=== PATIENT | male | born 2000 | race Caucasian/White ===

== ENCOUNTER 2022-04-01 16:59 | Emergency (ER) | payer OTHER, SELFPAY ==
[2022-04-01 17:06] VITALS: BMI 30.4
[2022-04-01 17:15] VITALS: BP 134/82; PULSE 79; RESP 18; O2SAT 96
[2022-04-01 17:45] LABS: Alanine Aminotransferase 268 IU/L (<50); Alkaline Phosphatase 95 U/L (38-126); Aspartate Aminotransferase 89 IU/L (17-59); BUN Creatinine Ratio 10.5 (6-22); Bilirubin Total 0.5 mg/dL (0.2-1.3); Blood Urea Nitrogen 10 mg/dL (9-20); Carbon Dioxide 24 mmol/L (22-32); Chloride 103 mmol/L (98-107); Estimated Glomerular Filt Rate > 60 mL/min (>60); Glucose 101 mg/dL (70-100); Potassium 4.2 mmol/L (3.4-5.1); Sodium 141 mmol/L (137-145); Total Protein 7.9 g/dL (6.3-8.2)
[2022-04-01 17:46] LABS: Albumin 4.4 g/dL (3.5-5.0); Albumin Globulin Ratio 1.3 (1.0-2.8); Ethanol (ETOH) < 10 mg/dL; Globulin 3.5 g/dL (1.7-4.1); HEMOLYSIS 24 (0-50)
[2022-04-01 17:47] LABS: Add Manual Diff / Slide Review NO; Basophils Absolute Auto 100 /uL (0-100); Basophils Percent Auto 0.9 % (0-2); Eosinophils Absolute Auto 400 /uL (0-450); Eosinophils Percent Auto 6.1 % (2-4); Hematocrit 42.3 % (41-53); Hemoglobin 14.8 g/dL (13.5-17.5); Lymphocytes Absolute Auto 2400 /uL (1100-4500); Lymphocytes Percent Auto 39.8 % (25-40); Mean Corpuscular HGB Conc 34.9 % (30-36); Mean Corpuscular Hemoglobin 31.2 PG (26-34); Mean Corpuscular Volume 89.4 fL (80-100); Monocytes Absolute Auto 500 /uL (0-900); Neutrophils Absolute Auto 2700 /uL (1500-7000); Neutrophils Percent Auto 45.2 % (50-75); Platelet Count 263 X10^3/uL (150-400); Red Blood Cell Count 4.73 X10^6/uL (4.5-5.9); Red Cell Distribution Width 12.9 % (11.6-14.8); White Blood Cell Count 5.9 X10^3/uL (4.5-11.0)
[2022-04-01 18:37] LABS: COVID19 -Nasal RAPID Negative (Negative)
[2022-04-01 18:44] LABS: Ur Creatinine Normal (Normal); Ur Specific Gravity Normal (Normal); Urine Tetrahydrocannabinol Negative (Negative); Urine pH Normal (Normal)
[2022-04-01 18:45] LABS: UR Morphine/Opiate cutoff 300 Negative (Negative); Urine Amphetamines Negative (Negative); Urine Barbiturates Negative (Negative); Urine Benzodiazepines Negative (Negative); Urine Cocaine Negative (Negative); Urine MDMA Negative (Negative); Urine Methadone Negative (Negative); Urine Methamphetamines Negative (Negative); Urine Oxycodone Negative (Negative); Urine Phencyclidine Negative (Negative); Urine Tricyclic Antidepressant Negative (Negative)
--- NOTE | 2022-04-01 18:45 | ED_ITS ---
HPI - Psych <JESIKA Cancino - Last Filed: 04/02/22 20:37> General Chief Complaint: Psychiatric Symptoms Stated Complaint: suicide Time Seen by Provider: 04/01/22 17:30 Source: patient Mode of arrival: Family Vehicle History of Present Illness HPI Narrative: This is a 21-year-old male who [place] emergency [place] expressed feelings of depression which have been worsening over the last 2 years with significant worsening over the last week and states that he has suicidal ideation without a plan in general. He states that today when he was driving he thought about driving off of the road but did not do it. He denies any ingestion of anything to harm himself, states he used to be a heavy drinker in 2019 when he lost his grandpa and is caring a lot of grief from this. He states he has not been drinking or vaping, denies any ingestion. He states that he is on Wellbutrin and clonidine for his anxiety and depression. He denies any homicidal ideation, he came in by ambulance today with concern for his suicidality. Patient , has a supportive spouse, states that he has had stress with work his work life balance and weight gain over the last 2 years of 90 lb. Related Data Home Medications Medication Instructions Recorded Confirmed bupropion HCl 150 mg 24 hr tablet, 150 mg PO QAM 04/01/22 04/01/22 extended release (Wellbutrin XL) clonidine HCl 0.2 mg tablet 0.2 mg PO PRN PRN Anxiety 04/01/22 04/01/22 Allergies Allergy/AdvReac Type Severity Reaction Status Date / Time No Known Drug Allergies Allergy Verified 04/01/22 17:17 Review of Systems <JESIKA Cancino - Last Filed: 04/02/22 20:37> Review of Systems Narrative: Review of systems is negative for acute abnormalities unless otherwise noted in HPI Patient History <JESIKA Cancino - Last Filed: 04/02/22 20:37> Social History Smoking Status: Former smoker Smoking Status: Former smoker tobacco type: vaping alcohol intake frequency: 0-2 drinks per day Substance Use Type: does not use Exam <JESIKA Cancino - Last Filed: 04/02/22 20:37> Narrative Exam Narrative: Reviewed vitals signs and nursing notes. General: cooperative, comfortable, in no acute distress, well groomed HEENT: symmetrical facial expressions, moist mucous membranes Cardiovascular: regular rate and rhythm, no peripheral edema, warm extremities Respiratory: normal effort, able to speak in complete sentences, without wheezing, stridor, or abnormal breath sounds. No retractions or tachypnea. GI: abdomen soft, nontender to palpation, nondistended, without masses, rebound tenderness or exquisite tenderness with exam. MSK: moves all extremities, neurovascularly intact, no weakness, normal tone Skin: brisk capillary refill, without pallor or erythema Neuro: normal speech and cognition, A&O x3, ambulatory, clear speech Psych: mental status is grossly normal, congruent mood, normal affect, pleasant and cooperative Initial Vital Signs Initial Vital Signs: Vital Signs Pulse Rate 79 04/01/22 17:15 Respiratory Rate 18 04/01/22 17:15 Blood Pressure 134/82 04/01/22 17:15 Pulse Oximetry 96 04/01/22 17:15 Oxygen Delivery Method 04/01/22 17:15 <Tatiana Martinez DO - Last Filed: 04/03/22 06:57> Initial Vital Signs Initial Vital Signs: Vital Signs Pulse Rate 79 04/01/22 17:15 Respiratory Rate 18 04/01/22 17:15 Blood Pressure 134/82 04/01/22 17:15 Pulse Oximetry 96 04/01/22 17:15 Oxygen Delivery Method 04/01/22 17:15 <Ellen Argueta DO - Last Filed: 04/02/22 18:35> Initial Vital Signs Initial Vital Signs: Vital Signs Pulse Rate 79 04/01/22 17:15 Respiratory Rate 18 04/01/22 17:15 Blood Pressure 134/82 04/01/22 17:15 Pulse Oximetry 96 04/01/22 17:15 Oxygen Delivery Method 04/01/22 17:15 Course <JESIKA Cancino - Last Filed: 04/02/22 20:37> Orders Ordered: ED Orders 04/02/22 10:41 Acetaminophen Stat Salicylate Stat Thyroid Stimulating Hormone Stat Vital Signs Vital signs: Vital Signs - 8 hr 04/02/22 11:55 Temperature 98.6 F Pulse Rate 79 Respiratory Rate 16 Blood Pressure 139/95 H Pulse Oximetry 97 Oxygen Delivery Method Room Air <Tatiana Martinez DO - Last Filed: 04/03/22 06:57> Orders Ordered: ED Orders 04/02/22 10:41 Acetaminophen Stat Salicylate Stat Thyroid Stimulating Hormone Stat Vital Signs Vital signs: Vital Signs - 8 hr 04/02/22 11:55 Temperature 98.6 F Pulse Rate 79 Respiratory Rate 16 Blood Pressure 139/95 H Pulse Oximetry 97 Oxygen Delivery Method Room Air <Ellen Argueta DO - Last Filed: 04/02/22 18:35> Orders Ordered: ED Orders 04/02/22 10:41 Acetaminophen Stat Salicylate Stat Thyroid Stimulating Hormone Stat Vital Signs Vital signs: Vital Signs - 8 hr 04/02/22 11:55 Temperature 98.6 F Pulse Rate 79 Respiratory Rate 16 Blood Pressure 139/95 H Pulse Oximetry 97 Oxygen Delivery Method Room Air MDM - Psych <PHANI CancinoP - Last Filed: 04/02/22 20:37> Lab Data Result diagrams: 04/01/22 17:15 04/01/22 17:15 Labs: Lab Results 04/01/22 04/01/22 04/01/22 Range/Units 16:14 17:15 17:15 WBC 5.9 (4.5-11.0) X10^3/uL RBC 4.73 (4.5-5.9) X10^6/uL Hgb 14.8 (13.5-17.5) g/dL Hct 42.3 (41-53) % MCV 89.4 (80-100) fL MCH 31.2 (26-34) PG MCHC 34.9 (30-36) % RDW 12.9 (11.6-14.8) % Plt Count 263 (150-400) X10^3/uL Neut % (Auto) 45.2 L (50-75) % Lymph % (Auto) 39.8 (25-40) % [place] % (Auto) 8.0 (3-14) % Eos % (Auto) 6.1 H (2-4) % Baso % (Auto) 0.9 (0-2) % Neut # (Auto) 2700 (3042-8285) /uL Lymph # (Auto) 2400 (1670-3325) /uL [place] # (Auto) 500 (0-900) /uL Eos # (Auto) 400 (0-450) /uL Baso # (Auto) 100 (0-100) /uL Sodium 141 (137-145) mmol/L Potassium 4.2 (3.4-5.1) mmol/L Chloride 103 (98-107) mmol/L Carbon Dioxide 24 (22-32) mmol/L BUN 10 (9-20) mg/dL Creatinine 0.95 (0.66-1.25) mg/dL Estimated GFR > 60 (>60) mL/min BUN/Creatinine Ratio 10.5 (6-22) Glucose 101 H (70-100) mg/dL Calcium 9.0 (8.4-10.2) mg/dL Total Bilirubin 0.5 (0.2-1.3) mg/dL AST 89 H (17-59) IU/L ALT 268 H (<50) IU/L Alkaline Phosphatase 95 (38-126) U/L Total Protein 7.9 (6.3-8.2) g/dL Albumin 4.4 (3.5-5.0) g/dL Globulin 3.5 (1.7-4.1) g/dL Albumin/Globulin Ratio 1.3 (1.0-2.8) TSH (0.47-4.68) uIU/mL Ur Bilirubin Confirm (Negative) Urine RBC (0-5/HPF) Urine WBC (0-5/HPF) Ur Squamous Epith Cells (0-5/HPF) Amorphous Sediment Urine Bacteria (None) Urine Mucus (Negative) Ur Culture Indicated? Salicylates (<20) mg/dL U Opiates 300ng/mL cut (Negative) Ur Oxycodone Screen (Negative) Urine Methadone Screen (Negative) Acetaminophen (10-30) ug/mL Ur Barbiturates Screen (Negative) U Tricyclic Antidepress (Negative) Ur Phencyclidine Scrn (Negative) Ur Amphetamines Screen (Negative) U Methamphetamines Scrn (Negative) Ur MDMA Scrn (Ecstasy) (Negative) U Benzodiazepines Scrn (Negative) Urine Cocaine Screen (Negative) U Marijuana (THC) Screen (Negative) Ethyl Alcohol < 10 ( - 10) mg/dL SARS-CoV-2 (PCR) Negative (Negative) 04/01/22 04/01/22 04/02/22 Range/Units 18:09 18:09 10:41 WBC (4.5-11.0) X10^3/uL RBC (4.5-5.9) X10^6/uL Hgb (13.5-17.5) g/dL Hct (41-53) % MCV (80-100) fL MCH (26-34) PG MCHC (30-36) % RDW (11.6-14.8) % Plt Count (150-400) X10^3/uL Neut % (Auto) (50-75) % Lymph % (Auto) (25-40) % [place] % (Auto) (3-14) % Eos % (Auto) (2-4) % Baso % (Auto) (0-2) % Neut # (Auto) (7834-5851) /uL Lymph # (Auto) (0282-1455) /uL [place] # (Auto) (0-900) /uL Eos # (Auto) (0-450) /uL Baso # (Auto) (0-100) /uL Sodium (137-145) mmol/L Potassium (3.4-5.1) mmol/L Chloride (98-107) mmol/L Carbon Dioxide (22-32) mmol/L BUN (9-20) mg/dL Creatinine (0.66-1.25) mg/dL Estimated GFR (>60) mL/min BUN/Creatinine Ratio (6-22) Glucose (70-100) mg/dL Calcium (8.4-10.2) mg/dL Total Bilirubin (0.2-1.3) mg/dL AST (17-59) IU/L ALT (<50) IU/L Alkaline Phosphatase (38-126) U/L Total Protein (6.3-8.2) g/dL Albumin (3.5-5.0) g/dL Globulin (1.7-4.1) g/dL Albumin/Globulin Ratio (1.0-2.8) TSH 3.03 (0.47-4.68) uIU/mL Ur Bilirubin Confirm Negative (Negative) Urine RBC 0-1/hpf (0-5/HPF) Urine WBC 5-10/hpf H (0-5/HPF) Ur Squamous Epith Cells 1-5 /hpf (0-5/HPF) Amorphous Sediment 1+ Urine Bacteria None seen (None) Urine Mucus 4+ H (Negative) Ur Culture Indicated? Specimen cultured Salicylates (<20) mg/dL U Opiates 300ng/mL cut Negative (Negative) Ur Oxycodone Screen Negative (Negative) Urine Methadone Screen Negative (Negative) Acetaminophen (10-30) ug/mL Ur Barbiturates Screen Negative (Negative) U Tricyclic Antidepress Negative (Negative) Ur Phencyclidine Scrn Negative (Negative) Ur Amphetamines Screen Negative (Negative) U Methamphetamines Scrn Negative (Negative) Ur MDMA Scrn (Ecstasy) Negative (Negative) U Benzodiazepines Scrn Negative (Negative) Urine Cocaine Screen Negative (Negative) U Marijuana (THC) Screen Negative (Negative) Ethyl Alcohol ( - 10) mg/dL SARS-CoV-2 (PCR) (Negative) 04/02/22 Range/Units 10:41 WBC (4.5-11.0) X10^3/uL RBC (4.5-5.9) X10^6/uL Hgb (13.5-17.5) g/dL Hct (41-53) % MCV (80-100) fL MCH (26-34) PG MCHC (30-36) % RDW (11.6-14.8) % Plt Count (150-400) X10^3/uL Neut % (Auto) (50-75) % Lymph % (Auto) (25-40) % [place] % (Auto) (3-14) % Eos % (Auto) (2-4) % Baso % (Auto) (0-2) % Neut # (Auto) (2668-3993) /uL Lymph # (Auto) (0492-5410) /uL [place] # (Auto) (0-900) /uL Eos # (Auto) (0-450) /uL Baso # (Auto) (0-100) /uL Sodium (137-145) mmol/L Potassium (3.4-5.1) mmol/L Chloride (98-107) mmol/L Carbon Dioxide (22-32) mmol/L BUN (9-20) mg/dL Creatinine (0.66-1.25) mg/dL Estimated GFR (>60) mL/min BUN/Creatinine Ratio (6-22) Glucose (70-100) mg/dL Calcium (8.4-10.2) mg/dL Total Bilirubin (0.2-1.3) mg/dL AST (17-59) IU/L ALT (<50) IU/L Alkaline Phosphatase (38-126) U/L Total Protein (6.3-8.2) g/dL Albumin (3.5-5.0) g/dL Globulin (1.7-4.1) g/dL Albumin/Globulin Ratio (1.0-2.8) TSH (0.47-4.68) uIU/mL Ur Bilirubin Confirm (Negative) Urine RBC (0-5/HPF) Urine WBC (0-5/HPF) Ur Squamous Epith Cells (0-5/HPF) Amorphous Sediment Urine Bacteria (None) Urine Mucus (Negative) Ur Culture Indicated? Salicylates < 1.0 (<20) mg/dL U Opiates 300ng/mL cut (Negative) Ur Oxycodone Screen (Negative) Urine Methadone Screen (Negative) Acetaminophen < 10 (10-30) ug/mL Ur Barbiturates Screen (Negative) U Tricyclic Antidepress (Negative) Ur Phencyclidine Scrn (Negative) Ur Amphetamines Screen (Negative) U Methamphetamines Scrn (Negative) Ur MDMA Scrn (Ecstasy) (Negative) U Benzodiazepines Scrn (Negative) Urine Cocaine Screen (Negative) U Marijuana (THC) Screen (Negative) Ethyl Alcohol ( - 10) mg/dL SARS-CoV-2 (PCR) (Negative) Urine Dip Bedside Urine Glucose Negative Bedside Urine Bilirubin + 1 Bedside Urine Ketone - Negative Urine Specific [place] 1.03 Bedside Urine Occult Blood - Negative Bedside Urine pH 6.0 Bedside Urine Protein +/- 15 Bedside Urine Urobilinogen - Negative Bedside Urine Nitrite - Negative Bedside Urine Leukocytes - Negative Esterase MDM Narrative Medical decision making narrative: This is a 21-year-old male who presents to the emergency department by ambulance after he was at his [place] behavioral health therapy appointment in which he endor sed suicidal ideation and thoughts of ending his life over the last week. Patient is currently on Wellbutrin 150 mg q.a.m. for depression and clonidine 0.2 mg as needed for anxiety. He states he has been on this for a while. He states his depression started worsening in 2019 with his grandfather and then he gained 90 lb which led to worsening of his depression, he states that he has not had a plan but today thought about driving his car off the road. He has been medically cleared without any abnormal findings on his lab work today and records have been sent to [facility] and pending response with a bed for voluntary admission. <Tatianatunde Martinez, DO - Last Filed: 04/03/22 06:57> Lab Data Labs: Lab Results 04/01/22 04/01/22 04/01/22 Range/Units 16:14 17:15 17:15 WBC 5.9 (4.5-11.0) X10^3/uL RBC 4.73 (4.5-5.9) X10^6/uL Hgb 14.8 (13.5-17.5) g/dL Hct 42.3 (41-53) % MCV 89.4 (80-100) fL MCH 31.2 (26-34) PG MCHC 34.9 (30-36) % RDW 12.9 (11.6-14.8) % Plt Count 263 (150-400) X10^3/uL Neut % (Auto) 45.2 L (50-75) % Lymph % (Auto) 39.8 (25-40) % [place] % (Auto) 8.0 (3-14) % Eos % (Auto) 6.1 H (2-4) % Baso % (Auto) 0.9 (0-2) % Neut # (Auto) 2700 (9891-8277) /uL Lymph # (Auto) 2400 (0388-6222) /uL [place] # (Auto) 500 (0-900) /uL Eos # (Auto) 400 (0-450) /uL Baso # (Auto) 100 (0-100) /uL Sodium 141 (137-145) mmol/L Potassium 4.2 (3.4-5.1) mmol/L Chloride 103 (98-107) mmol/L Carbon Dioxide 24 (22-32) mmol/L BUN 10 (9-20) mg/dL Creatinine 0.95 (0.66-1.25) mg/dL Estimated GFR > 60 (>60) mL/min BUN/Creatinine Ratio 10.5 (6-22) Glucose 101 H (70-100) mg/dL Calcium 9.0 (8.4-10.2) mg/dL Total Bilirubin 0.5 (0.2-1.3) mg/dL AST 89 H (17-59) IU/L ALT 268 H (<50) IU/L Alkaline Phosphatase 95 (38-126) U/L Total Protein 7.9 (6.3-8.2) g/dL Albumin 4.4 (3.5-5.0) g/dL Globulin 3.5 (1.7-4.1) g/dL Albumin/Globulin Ratio 1.3 (1.0-2.8) TSH (0.47-4.68) uIU/mL Ur Bilirubin Confirm (Negative) Urine RBC (0-5/HPF) Urine WBC (0-5/HPF) Ur Squamous Epith Cells (0-5/HPF) Amorphous Sediment Urine Bacteria (None) Urine Mucus (Negative) Ur Culture Indicated? Salicylates (<20) mg/dL U Opiates 300ng/mL cut (Negative) Ur Oxycodone Screen (Negative) Urine Methadone Screen (Negative) Acetaminophen (10-30) ug/mL Ur Barbiturates Screen (Negative) U Tricyclic Antidepress (Negative) Ur Phencyclidine Scrn (Negative) Ur Amphetamines Screen (Negative) U Methamphetamines Scrn (Negative) Ur MDMA Scrn (Ecstasy) (Negative) U Benzodiazepines Scrn (Negative) Urine Cocaine Screen (Negative) U Marijuana (THC) Screen (Negative) Ethyl Alcohol < 10 ( - 10) mg/dL SARS-CoV-2 (PCR) Negative (Negative) 04/01/22 04/01/22 04/02/22 Range/Units 18:09 18:09 10:41 WBC (4.5-11.0) X10^3/uL RBC (4.5-5.9) X10^6/uL Hgb (13.5-17.5) g/dL Hct (41-53) % MCV (80-100) fL MCH (26-34) PG MCHC (30-36) % RDW (11.6-14.8) % Plt Count (150-400) X10^3/uL Neut % (Auto) (50-75) % Lymph % (Auto) (25-40) % [place] % (Auto) (3-14) % Eos % (Auto) (2-4) % Baso % (Auto) (0-2) % Neut # (Auto) (0815-4349) /uL Lymph # (Auto) (9771-2438) /uL [place] # (Auto) (0-900) /uL Eos # (Auto) (0-450) /uL Baso # (Auto) (0-100) /uL Sodium (137-145) mmol/L Potassium (3.4-5.1) mmol/L Chloride (98-107) mmol/L Carbon Dioxide (22-32) mmol/L BUN (9-20) mg/dL Creatinine (0.66-1.25) mg/dL Estimated GFR (>60) mL/min BUN/Creatinine Ratio (6-22) Glucose (70-100) mg/dL Calcium (8.4-10.2) mg/dL Total Bilirubin (0.2-1.3) mg/dL AST (17-59) IU/L ALT (<50) IU/L Alkaline Phosphatase (38-126) U/L Total Protein (6.3-8.2) g/dL Albumin (3.5-5.0) g/dL Globulin (1.7-4.1) g/dL Albumin/Globulin Ratio (1.0-2.8) TSH 3.03 (0.47-4.68) uIU/mL Ur Bilirubin Confirm Negative (Negative) Urine RBC 0-1/hpf (0-5/HPF) Urine WBC 5-10/hpf H (0-5/HPF) Ur Squamous Epith Cells 1-5 /hpf (0-5/HPF) Amorphous Sediment 1+ Urine Bacteria None seen (None) Urine Mucus 4+ H (Negative) Ur Culture Indicated? Specimen cultured Salicylates (<20) mg/dL U Opiates 300ng/mL cut Negative (Negative) Ur Oxycodone Screen Negative (Negative) Urine Methadone Screen Negative (Negative) Acetaminophen (10-30) ug/mL Ur Barbiturates Screen Negative (Negative) U Tricyclic Antidepress Negative (Negative) Ur Phencyclidine Scrn Negative (Negative) Ur Amphetamines Screen Negative (Negative) U Methamphetamines Scrn Negative (Negative) Ur MDMA Scrn (Ecstasy) Negative (Negative) U Benzodiazepines Scrn Negative (Negative) Urine Cocaine Screen Negative (Negative) U Marijuana (THC) Screen Negative (Negative) Ethyl Alcohol ( - 10) mg/dL SARS-CoV-2 (PCR) (Negative) 04/02/22 Range/Units 10:41 WBC (4.5-11.0) X10^3/uL RBC (4.5-5.9) X10^6/uL Hgb (13.5-17.5) g/dL Hct (41-53) % MCV (80-100) fL MCH (26-34) PG MCHC (30-36) % RDW (11.6-14.8) % Plt Count (150-400) X10^3/uL Neut % (Auto) (50-75) % Lymph % (Auto) (25-40) % [place] % (Auto) (3-14) % Eos % (Auto) (2-4) % Baso % (Auto) (0-2) % Neut # (Auto) (2405-8351) /uL Lymph # (Auto) (1083-1980) /uL [place] # (Auto) (0-900) /uL Eos # (Auto) (0-450) /uL Baso # (Auto) (0-100) /uL Sodium (137-145) mmol/L Potassium (3.4-5.1) mmol/L Chloride (98-107) mmol/L Carbon Dioxide (22-32) mmol/L BUN (9-20) mg/dL Creatinine (0.66-1.25) mg/dL Estimated GFR (>60) mL/min BUN/Creatinine Ratio (6-22) Glucose (70-100) mg/dL Calcium (8.4-10.2) mg/dL Total Bilirubin (0.2-1.3) mg/dL AST (17-59) IU/L ALT (<50) IU/L Alkaline Phosphatase (38-126) U/L Total Protein (6.3-8.2) g/dL Albumin (3.5-5.0) g/dL Globulin (1.7-4.1) g/dL Albumin/Globulin Ratio (1.0-2.8) TSH (0.47-4.68) uIU/mL Ur Bilirubin Confirm (Negative) Urine RBC (0-5/HPF) Urine WBC (0-5/HPF) Ur Squamous Epith Cells (0-5/HPF) Amorphous Sediment Urine Bacteria (None) Urine Mucus (Negative) Ur Culture Indicated? Salicylates < 1.0 (<20) mg/dL U Opiates 300ng/mL cut (Negative) Ur Oxycodone Screen (Negative) Urine Methadone Screen (Negative) Acetaminophen < 10 (10-30) ug/mL Ur Barbiturates Screen (Negative) U Tricyclic Antidepress (Negative) Ur Phencyclidine Scrn (Negative) Ur Amphetamines Screen (Negative) U Methamphetamines Scrn (Negative) Ur MDMA Scrn (Ecstasy) (Negative) U Benzodiazepines Scrn (Negative) Urine Cocaine Screen (Negative) U Marijuana (THC) Screen (Negative) Ethyl Alcohol ( - 10) mg/dL SARS-CoV-2 (PCR) (Negative) Urine Dip Bedside Urine Glucose Negative Bedside Urine Bilirubin + 1 Bedside Urine Ketone - Negative Urine Specific [place] 1.03 Bedside Urine Occult Blood - Negative Bedside Urine pH 6.0 Bedside Urine Protein +/- 15 Bedside Urine Urobilinogen - Negative Bedside Urine Nitrite - Negative Bedside Urine Leukocytes - Negative Esterase MDM Narrative Medical decision making narrative: This is a 21-year-old male who presents to the emergency department by ambulance after he was at his [place] behavioral health therapy appointment in which he endorsed suicidal ideation and thoughts of ending his life over the last week. Patient is currently on Wellbutrin 150 mg q.a.m. for depression and clonidine 0.2 mg as needed for anxiety. He states he has been on this for a while. He states his depression started worsening in 2019 with his grandfather and then he gained 90 lb which led to worsening of his depression, he states that he has not had a plan but today thought about driving his car off the road. He has been medically cleared without any abnormal findings on his lab work today and records have been sent to [facility] and pending response with a bed for voluntary admission. Patient signed out to myself by [employer]. Patient was seen independently laura vital by myself. I spoke with . Sandra @ [phone] who saw patient today and has had 3 prior visits. She feels strongly patient needs inpatient at [facility]. She [place] feel that [place]. Although patient has requested do so although he is asking to return home and follow-up during daytime hours to still go to med again. If there are any issues she asked that we reach out to his command number and they can reinforce this. Discussed with patient that his physician feels he needs to stay here until placement is found. He is agreeable to this and has been very pleasant and appropriate in the department. Patient medically cleared. Patient signed out to Dr. Argueta while awaiting placement. [facility] reportedly reviewing after 5:00 a.m. today, we have confirmed patient's chart arrived. [facility]-medically clear I spoke with patient myself. He actually is quite happy this morning. He states that he is no longer suicidal. He feels much better and safer going home his who is a good support for him. He says he did not mean to say that he was suicidal yesterday. Currently waiting for social work for evaluation however he has been accepted at [facility] again. I did talk with Lt. Sandra @ [phone], again this morning. She states it he is crisis mode. She has made arrangements for him to be off work through the weekend and he has close follow-up with her. His appointments for actually scheduled to increase to twice a week none starting on Wednesday versus the once a week. She also make adjustments medications as needed. At this time she says med again and transport can be canceled and he can be discharged home. Patient and feel much better with this plan <Ellen Argueta, DO - Last Filed: 04/02/22 18:35> Lab Data Labs: Lab Results 04/01/22 04/01/22 04/01/22 Range/Units 16:14 17:15 17:15 WBC 5.9 (4.5-11.0) X10^3/uL RBC 4.73 (4.5-5.9) X10^6/uL Hgb 14.8 (13.5-17.5) g/dL Hct 42.3 (41-53) % MCV 89.4 (80-100) fL MCH 31.2 (26-34) PG MCHC 34.9 (30-36) % RDW 12.9 (11.6-14.8) % Plt Count 263 (150-400) X10^3/uL Neut % (Auto) 45.2 L (50-75) % Lymph % (Auto) 39.8 (25-40) % [place] % (Auto) 8.0 (3-14) % Eos % (Auto) 6.1 H (2-4) % Baso % (Auto) 0.9 (0-2) % Neut # (Auto) 2700 (5036-0865) /uL Lymph # (Auto) 2400 (6136-6858) /uL [place] # (Auto) 500 (0-900) /uL Eos # (Auto) 400 (0-450) /uL Baso # (Auto) 100 (0-100) /uL Sodium 141 (137-145) mmol/L Potassium 4.2 (3.4-5.1) mmol/L Chloride 103 (98-107) mmol/L Carbon Dioxide 24 (22-32) mmol/L BUN 10 (9-20) mg/dL Creatinine 0.95 (0.66-1.25) mg/dL Estimated GFR > 60 (>60) mL/min BUN/Creatinine Ratio 10.5 (6-22) Glucose 101 H (70-100) mg/dL Calcium 9.0 (8.4-10.2) mg/dL Total Bilirubin 0.5 (0.2-1.3) mg/dL AST 89 H (17-59) IU/L ALT 268 H (<50) IU/L Alkaline Phosphatase 95 (38-126) U/L Total Protein 7.9 (6.3-8.2) g/dL Albumin 4.4 (3.5-5.0) g/dL Globulin 3.5 (1.7-4.1) g/dL Albumin/Globulin Ratio 1.3 (1.0-2.8) TSH (0.47-4.68) uIU/mL Ur Bilirubin Confirm (Negative) Urine RBC (0-5/HPF) Urine WBC (0-5/HPF) Ur Squamous Epith Cells (0-5/HPF) Amorphous Sediment Urine Bacteria (None) Urine Mucus (Negative) Ur Culture Indicated? Salicylates (<20) mg/dL U Opiates 300ng/mL cut (Negative) Ur Oxycodone Screen (Negative) Urine Methadone Screen (Negative) Acetaminophen (10-30) ug/mL Ur Barbiturates Screen (Negative) U Tricyclic Antidepress (Negative) Ur Phencyclidine Scrn (Negative) Ur Amphetamines Screen (Negative) U Methamphetamines Scrn (Negative) Ur MDMA Scrn (Ecstasy) (Negative) U Benzodiazepines Scrn (Negative) Urine Cocaine Screen (Negative) U Marijuana (THC) Screen (Negative) Ethyl Alcohol < 10 ( - 10) mg/dL SARS-CoV-2 (PCR) Negative (Negative) 04/01/22 04/01/22 04/02/22 Range/Units 18:09 18:09 10:41 WBC (4.5-11.0) X10^3/uL RBC (4.5-5.9) X10^6/uL Hgb (13.5-17.5) g/dL Hct (41-53) % MCV (80-100) fL MCH (26-34) PG MCHC (30-36) % RDW (11.6-14.8) % Plt Count (150-400) X10^3/uL Neut % (Auto) (50-75) % Lymph % (Auto) (25-40) % [place] % (Auto) (3-14) % Eos % (Auto) (2-4) % Baso % (Auto) (0-2) % Neut # (Auto) (6695-2083) /uL Lymph # (Auto) (6538-7033) /uL [place] # (Auto) (0-900) /uL Eos # (Auto) (0-450) /uL Baso # (Auto) (0-100) /uL Sodium (137-145) mmol/L Potassium (3.4-5.1) mmol/L Chloride (98-107) mmol/L Carbon Dioxide (22-32) mmol/L BUN (9-20) mg/dL Creatinine (0.66-1.25) mg/dL Estimated GFR (>60) mL/min BUN/Creatinine Ratio (6-22) Glucose (70-100) mg/dL Calcium (8.4-10.2) mg/dL Total Bilirubin (0.2-1.3) mg/dL AST (17-59) IU/L ALT (<50) IU/L Alkaline Phosphatase (38-126) U/L Total Protein (6.3-8.2) g/dL Albumin (3.5-5.0) g/dL Globulin (1.7-4.1) g/dL Albumin/Globulin Ratio (1.0-2.8) TSH 3.03 (0.47-4.68) uIU/mL Ur Bilirubin Confirm Negative (Negative) Urine RBC 0-1/hpf (0-5/HPF) Urine WBC 5-10/hpf H (0-5/HPF) Ur Squamous Epith Cells 1-5 /hpf (0-5/HPF) Amorphous Sediment 1+ Urine Bacteria None seen (None) Urine Mucus 4+ H (Negative) Ur Culture Indicated? Specimen cultured Salicylates (<20) mg/dL U Opiates 300ng/mL cut Negative (Negative) Ur Oxycodone Screen Negative (Negative) Urine Methadone Screen Negative (Negative) Acetaminophen (10-30) ug/mL Ur Barbiturates Screen Negative (Negative) U Tricyclic Antidepress Negative (Negative) Ur Phencyclidine Scrn Negative (Negative) Ur Amphetamines Screen Negative (Negative) U Methamphetamines Scrn Negative (Negative) Ur MDMA Scrn (Ecstasy) Negative (Negative) U Benzodiazepines Scrn Negative (Negative) Urine Cocaine Screen Negative (Negative) U Marijuana (THC) Screen Negative (Negative) Ethyl Alcohol ( - 10) mg/dL SARS-CoV-2 (PCR) (Negative) 04/02/22 Range/Units 10:41 WBC (4.5-11.0) X10^3/uL RBC (4.5-5.9) X10^6/uL Hgb (13.5-17.5) g/dL Hct (41-53) % MCV (80-100) fL MCH (26-34) PG MCHC (30-36) % RDW (11.6-14.8) % Plt Count (150-400) X10^3/uL Neut % (Auto) (50-75) % Lymph % (Auto) (25-40) % [place] % (Auto) (3-14) % Eos % (Auto) (2-4) % Baso % (Auto) (0-2) % Neut # (Auto) (0418-5153) /uL Lymph # (Auto) (8537-1004) /uL [place] # (Auto) (0-900) /uL Eos # (Auto) (0-450) /uL Baso # (Auto) (0-100) /uL Sodium (137-145) mmol/L Potassium (3.4-5.1) mmol/L Chloride (98-107) mmol/L Carbon Dioxide (22-32) mmol/L BUN (9-20) mg/dL Creatinine (0.66-1.25) mg/dL Estimated GFR (>60) mL/min BUN/Creatinine Ratio (6-22) Glucose (70-100) mg/dL Calcium (8.4-10.2) mg/dL Total Bilirubin (0.2-1.3) mg/dL AST (17-59) IU/L ALT (<50) IU/L Alkaline Phosphatase (38-126) U/L Total Protein (6.3-8.2) g/dL Albumin (3.5-5.0) g/dL Globulin (1.7-4.1) g/dL Albumin/Globulin Ratio (1.0-2.8) TSH (0.47-4.68) uIU/mL Ur Bilirubin Confirm (Negative) Urine RBC (0-5/HPF) Urine WBC (0-5/HPF) Ur Squamous Epith Cells (0-5/HPF) Amorphous Sediment Urine Bacteria (None) Urine Mucus (Negative) Ur Culture Indicated? Salicylates < 1.0 (<20) mg/dL U Opiates 300ng/mL cut (Negative) Ur Oxycodone Screen (Negative) Urine Methadone Screen (Negative) Acetaminophen < 10 (10-30) ug/mL Ur Barbiturates Screen (Negative) U Tricyclic Antidepress (Negative) Ur Phencyclidine Scrn (Negative) Ur Amphetamines Screen (Negative) U Methamphetamines Scrn (Negative) Ur MDMA Scrn (Ecstasy) (Negative) U Benzodiazepines Scrn (Negative) Urine Cocaine Screen (Negative) U Marijuana (THC) Screen (Negative) Ethyl Alcohol ( - 10) mg/dL SARS-CoV-2 (PCR) (Negative) Urine Dip Bedside Urine Glucose Negative Bedside Urine Bilirubin + 1 Bedside Urine Ketone - Negative Urine Specific [place] 1.03 Bedside Urine Occult Blood - Negative Bedside Urine pH 6.0 Bedside Urine Protein +/- 15 Bedside Urine Urobilinogen - Negative Bedside Urine Nitrite - Negative Bedside Urine Leukocytes - Negative Esterase MDM Narrative Medical decision making narrative: This is a 21-year-old male who presents to the emergency department by ambulance after he was at his [place] behavioral health therapy appointment in which he endorsed suicidal ideation and thoughts of ending his life over the last week. Patient is currently on Wellbutrin 150 mg q.a.m. for depression and clonidine 0.2 mg as needed for anxiety. He states he has been on this for a while. He states his depression started worsening in 2019 with his grandfather and then he gained 90 lb which led to worsening of his depression, he states that he has not had a plan but today thought about driving his car off the road. He has been medically cleared without any abnormal findings on his lab work today and records have been sent to [facility] and pending response with a bed for voluntary admission. Patient signed out to myself by [employer]. Patient was seen independently evaluated by myself. I spoke with Lt. Flores @ [phone] who saw patient today and has had 3 prior visits. She feels strongly patient needs inpatient at [facility]. [place] that [place]. Although patient has requested do so although he is asking to return home and follow-up during daytime hours to still go to [facility] again. If there are any issues she asked that we reach out to his command number and they can reinforce this. Discussed with patient that his physician feels he needs to stay here until placement is found. He is agreeable to this and has been very pleasant and appropriate in the department. Patient signed out to Dr. Argueta while awaiting placement. [facility] reportedly reviewing after 5:00 a.m. today, we have confirmed patient's chart arrived. Kendall-medically clear I spoke with patient myself. He actually is quite happy this morning. He states that he is no longer suicidal. He feels much better and safer going home his who is a good support for him. He says he did not mean to say that he was suicidal yesterday. Currently waiting for social work for evaluation however he has been accepted at [facility]. I did talk with Lt. Flores @ [phone], again this morning. She states it he is crisis mode. She has made arrangements for him to be off work through the weekend and he has close follow-up with her. His appointments for actually scheduled to increase to twice a week none starting on Wednesday versus the once a week. She also make adjustments medications as needed. At this time she says med again and trans port can be canceled and he can be discharged home. Patient and feel much better with this plan Discharge Plan Departure Patient Disposition: Home Clinical Impression: Depression with suicidal ideation Instructions: Depression, DI for Suicidal Ideation-Adult Activity Restrictions/Additional Instructions: *You have been diagnosed with depression, suicidal ideation *What to do: If you are feeling suicidal or having suicidal thoughts: Call: Suicide Hotline: 487 Visit: www.[employer] Text: 114066 *Continue to take medications as directed *Follow up with your primary care provider in 2-3 days or call [phone] *Return to ER if you should have both of suicide depression or any new, worsening or concerning symptoms Prescriptions: No Action bupropion HCl [Wellbutrin XL] 150 mg Tablet Extended Release 24 Hr 150 mg PO QAM clonidine HCl 0.2 mg tablet 0.2 mg PO PRN PRN (Reason: Anxiety) Label Comments: TAKE 1 TABLET BY MOUTH TWICE DAILY NEEDED FOR ANXIETY Referrals: [facility] [Provider Group] Visit Report Forms: Patient Portal/API
[2022-04-01 18:54] LABS: Amorphous Sediment Urine 1+; Bacteria Urine None Seen; Ictotest Urine Negative (Negative); RBC Urine 0-1/HPF (0-5/HPF); Squamous Epithelial Cell Urine 1-5 /HPF (0-5/HPF)
[2022-04-01 18:55] LABS: Culture Indicated Urine Specimen Cultured; Mucus Urine 4+ (Negative); WBC Urine 5-10/HPF (0-5/HPF)
[2022-04-01 19:38] VITALS: BP 130/62; PULSE 79; O2SAT 96
[2022-04-01 19:44] VITALS: BP 130/62; PULSE 79; RESP 18; O2SAT 96
[2022-04-02 08:09] VITALS: BP 126/77; PULSE 70; RESP 16; O2SAT 97
--- NOTE | 2022-04-02 09:17 | PC.NURSE ---
Patient asked if social work or the doctor were available to talk with him. I let him know social work arrives at noon but that I would have the doctor come talk with him as soon as possible. Patient was agreeable.
--- NOTE | 2022-04-02 11:25 | PC.NURSE ---
Patient sitting in big recliner in the room, spouse on patients bed. quiet and calm.
[2022-04-02 11:34] LABS: Acetaminophen < 10 ug/mL (10-30); Salicylate < 1.0 mg/dL (<20)
[2022-04-02 11:55] VITALS: BP 139/95; PULSE 79; RESP 16; TEMP 37; O2SAT 97
--- NOTE | 2022-04-02 12:06 | PC.NURSE ---
Patient was accepted to [facility] transport eta is 1330 with aproximate arrival time between [id number] @ [facility]. Dr. Ashwin Laird is the accepting provider. We talked with Tiffany from the [facility]. Tiffany states to give this number to the ambulance crew to call when they are close to arrival for gate entrance.
[2022-04-02 12:07] LABS: Thyroid Stimulating Hormone 3.03 uIU/mL (0.47-4.68)
--- NOTE | 2022-04-02 13:31 | CM.SWNOTE ---
ENGINE LATHE TENDER Assessment Note Patient is 21 y/o male who presents to ED via EMS per recommendation from [employer] therapist. At therapist session yesterday, patient endorsed SI with thought of plan last week. ED provider Dr. Martinez spoke with patient's therapist and recommended inpatient. Last evening patient agreed to inpatient without knowing what it meant. Patient as accepted at [facility] for transport today prior to this ENGINE LATHE TENDER meeting with patient. ENGINE LATHE TENDER meets with patient and he reports that he is not seeking voluntary inpatient and it is his preference to go home with . Patient's endorses that she is off work for the next week and she will supervise patient. Patient endorses he can contract for safety and patient denies current SI and patient denies SI since last week when he thought of driving off of the road. Patient endorses he will have therapy appts every Wednesday and for the next 8 weeks. Patient endorses he recently started new medication and he is hopeful for the future. Patient's states that patient is planning events with friends and going to the gym as well. Patient endorses he is trending upward. Patient endorses he is afraid of inpatient and believes it will be detrimental for him to be away from his , his main support. Patient endorses support from friends, coworkers, his dog, and patient has regular therapy sessions. It is the opinion of this ENGINE LATHE TENDER that patient is safe to d/c to home with , due to his patrick for safety, upcoming therapy appts and agreeing to monitor patient. ENGINE LATHE TENDER reviews this with ED provider who indicates understanding. ED provider calls patient's therapist with [employer] for clarification. It is reported that patient is able to safely d/c to home upon medical clearance after speaking with [place] therapist. Plan: patient to d/c to home with , patient to f/u with upcoming MH therapy appt early next week. GRAHAM Quiros
== END 2022-04-02 13:22 | disposition home or self-care (01) ==
PROVIDERS: Emergency Medicine; Emergency Provider Emergency Medicine
DX: F32.A Depression, unspecified (principal); R45.851 Suicidal ideations; Z20.822 Contact with and (suspected) exposure to COVID-19
CPT/HCPCS: 36415; 80053; 80305; 80320; 80329; 81003; 81015; 84443; 85025; 87086; 87635; 99284; C9803; G0480